=== PATIENT | male | born 1965 ===

== ENCOUNTER 2017-10-04 19:50 | Emergency (ER) | payer OTHER ==
[~2017-10-04] VITALS: Ht 180.3 cm; Wt 108.9 kg
[2017-10-04 19:53] VITALS: BP 157/108
[2017-10-04] MEDS ORDERED: CATAPRES PO STA (20:11)
[2017-10-04] MEDS ORDERED: CATAPRES ONE (20:14)
--- NOTE | 2017-10-04 20:14 | ER.PDOC ---
General Chief Complaint: Nosebleed Stated Complaint: NOSE BLEED Time seen by MD: 20:11 Source: patient Exam Limitations: no limitations History of Present Illness Initial Comments 52 year old white male with left nostril bleed since this am. No fever, no chills, not on meds Timing/Duration: other (persistent) Location: left nare Severity: mild Allergies: Coded Allergies: No Known Allergies (Unverified , 10/04/17) Home Meds No Active Prescriptions or Reported Meds Constitutional: no symptoms reported Eyes: no symptoms reported Ears: no symptoms reported Nose: see HPI Mouth: clots Throat: no symptoms reported Respiratory: no symptoms reported Cardiovascular: no symptoms reported Gastrointestinal: no symptoms reported Musculoskeletal: no symptoms reported Skin: no symptoms reported Neurological: no symptoms reported Hematologic/Lymphatic: no symptoms reported Immunological/Allergic: no symptoms reported Past Medical History Medical History: CVA/TIA/stroke, high cholesterol, hypertension Surgical History: no surgical history Social History Smoking: non-smoker Alcohol Use: sober Drug Use: none Physical Exam General Appearance: alert, no distress Nose: fresh clots, active bleeding (L), minimal bleeding Head/Neck: atraumatic, thyroid nml Eyes/Ears: eyes nml inspection, PERRL, no nystagmus, TM nml Mouth: lips, gums nml, pharynx nml NEURO/PSYCH: oriented X3, mood/effect nml CVS: reg. rate & rhythm, heart sounds nml Skin Exam: Rash (anterior hollis is red with open wound and abrasion) Nasal Packing Nasal Packing : External Pressure/Pinched(min): 5 Inspected With: otoscope Observe for bleeding until: 45 Nasal Packing Used: Nasal rocket inserted Results/Orders Results/Orders Laboratory Tests Test 10/04/17 20:18 White Blood Count 9.9 10^3/uL (4.5-11.0) Red Blood Count 5.06 10^6/uL (4.50-5.90) Hemoglobin 16.0 g/dL (13.9-16.3) Hematocrit 45.8 % (37.0-53.0) Mean Corpuscular Volume 90.5 fL (78-100) Mean Corpuscular Hemoglobin 31.6 pg (26-34) Mean Corpuscular Hemoglobin Concent 34.9 g/dL (33-37) Red Cell Distribution Width 13.0 % (11.5-14.5) Platelet Count 210 10^3/uL (150-400) Mean Platelet Volume 12.5 fL (7.8-11.0) Neutrophils (%) (Auto) 63.1 % (41.0-85.0) Lymphocytes (%) (Auto) 23.8 % (24.0-44.0) Monocytes (%) (Auto) 10.2 % (5.0-12.0) Neutrophils # (Auto) 6.2 10^3/uL (1.8-7.7) Lymphocytes # (Auto) 2.4 10^3/uL (1.0-4.8) Monocytes # (Auto) 1.0 10^3/uL (0.3-0.8) Absolute Immature Granulocyte (auto 0.06 10^3 u/L (0-2) Eosinophils % 1.7 % (0.0-5.0) Basophils % 0.6 % (0.0-0.2) Basophils # 0.1 10^3/uL (0.0-0.1) Eosinophil Count 0.2 10^3/uL (0.0-0.2) Prothrombin Time 11.6 SEC (9.8-11.9) Prothrombin Time INR (Non-Therap) 1.2 Activated Partial Thromboplast Time 27.2 SEC (24.67-30.72) Sodium Level 141 mmol/L (132-145) Potassium Level 3.4 mmol/L (3.6-5.2) Chloride Level 105.0 mmol/L (96-109) Carbon Dioxide Level 24.1 mmol/L (20.0-32) Anion Gap 15.3 Blood Urea Nitrogen 17 mg/dL (7-18) Creatinine 1.14 mg/dL (0.59-1.40) Estimated GFR () 81.6 (>/=60) BUN/Creatinine Ratio 14.0 Glucose Level 119 mg/dL (70-110) Calcium Level 9.1 mg/dL (8.4-10.5) Total Bilirubin 0.4 mg/dL (0.2-1.0) Aspartate Amino Transf (AST/SGOT) 21 U/L (0-35) Alanine Aminotransferase (ALT/SGPT) 40 U/L (12-78) Alkaline Phosphatase 115 U/L (50-136) Total Protein 7.5 g/dL (6.4-8.2) Albumin 3.6 g/dL (3.4-5.0) Globulin 3.9 Percent Immature Gran (Cell Imm) 0.60 % (0.00-0.50) Administered Medications Medications (Trade) Dose Ordered Sig/Brisa Route PRN Reason Start Time Stop Time Status Last Admin Dose Admin Clonidine (Catapres) 0.2 mg STAT STAT PO 10/04/17 20:11 10/04/17 20:14 DC 10/04/17 20:18 Departure Time of Disposition: 21:11 Disposition: 01 HOME, SELF-CARE Impression: Primary Impression: Epistaxis Additional Impression: Hypertension Qualified Codes: I10 - Essential (primary) hypertension Condition: Stable Referrals: PCP,UNKNOWN (PCP) PRIMARY CARE PROVIDER Additional Instructions: Remove nasal packing tomorrow Watch salt intake Follow up PCP Start on Norvasc 5 mg po qd Scripts No Active Prescriptions or Reported Meds Duration or Time Spent with Pa: 30 JOSE ROBERTO GRIDER MD Oct 04, 2017 20:14
[2017-10-04 20:22] LABS: BASOPHIL # 0.1 10^3/uL (0.0-0.1); BASOPHIL % 0.6 % (0.0-0.2); EOSINOPHIL # 0.2 10^3/uL (0.0-0.2); EOSINOPHIL % 1.7 % (0.0-5.0); LYMPHOCYTES # 2.4 10^3/uL (1.0-4.8); LYMPHOCYTES % 23.8 % (24.0-44.0); MEAN CELL HGB 31.6 pg (26-34); MEAN CELL HGB CONCENTRATION 34.9 g/dL (33-37); MEAN CORP VOLUME 90.5 fL (78-100); MEAN PLATELET VOLUME 12.5 fL (7.8-11.0); MONOCYTES % 10.2 % (5.0-12.0); NEUTROPHIL # 6.2 10^3/uL (1.8-7.7); NEUTROPHILS % 63.1 % (41.0-85.0); WHITE BLOOD CELL 9.9 10^3/uL (4.5-11.0)
[2017-10-04 20:30] VITALS: BP 151/103
[2017-10-04 20:38] LABS: CALCIUM 9.1 mg/dL (8.4-10.5); CARBON DIOXIDE 24.1 mmol/L (20.0-32)
[2017-10-04 21:04] VITALS: BP 147/105
[2017-10-04] MEDS ORDERED: NORVASC PO STA (21:13)
[2017-10-04] MEDS ORDERED: NORVASC ONE (21:13)
[2017-10-04 21:19] VITALS: BP 126/80
--- NOTE | 2017-10-04 21:20 | NUR ---
DISCHARGE EDUCATION DISCHARGE EDUCATION PROVIDED TO FRIENDS AND PATIENT. REVIEWED PACKING TO BE REMOVED TOMORROW AND HOW TO REMOVE, MEDICATION INFORMATION AND NEED TO FIND A PRIMARY CARE PHYSICIAN. INFORMATION PROVIDED FOR LOCAL PROVIDERS ACCEPTING NEW PATIENTS. CONCERN VOICED REGARDING SORES AND LEGS AND DISCOLORATION-EDUCATION TO FRIENDS FOR NEED TO FOLLOW UP FOR ADDITIONAL TESTING AND MEDCATION COMPLIANCE FOR BLOOD PRESSURE. NO ADDITIONAL QUESTIONS AT THIS TIME. PATIENT ESCORTED TO PO VIA WHEELCHAIR
[2017-10-04 21:39] VITALS: BP 126/80
== END 2017-10-04 21:20 | disposition home or self-care (01) ==
LOC: ER 19:50
DX: R04.0 Epistaxis (principal); I10 Essential (primary) hypertension; E78.00 Pure hypercholesterolemia, unspecified; Z86.73 Personal history of transient ischemic attack (TIA), and cerebral infarction without residual deficits
CPT/HCPCS: 30901; 36415; 80053; 85025; 85610; 85730; 99284